=== PATIENT | female | born 1995 | race Hispanic/Latino ===

== ENCOUNTER 2019-10-21 15:32 | Emergency (ER) | payer OTHER ==
[2019-10-21] MEDS ORDERED: IBUPROFEN 400 MG TABLET ONE (17:05)
[2019-10-21] MEDS ORDERED: ACETAMINOPHEN-CODEINE 300/30MG TAB ONE (17:06)
[2019-10-21] MEDS ORDERED: ONDANSETRON ODT 4 MG TAB ONE (17:06)
== END 2019-10-21 17:43 | disposition home or self-care (01) ==
LOC: EDH 15:32
DX: S16.1XXA Strain of muscle, fascia and tendon at neck level, initial encounter (principal); M25.511 Pain in right shoulder; M79.641 Pain in right hand; V49.59XA Passenger injured in collision with other motor vehicles in traffic accident, initial encounter; Y93.89 Activity, other specified; Y92.89 Other specified places as the place of occurrence of the external cause; Y99.8 Other external cause status
CPT/HCPCS: 72125; 73030